=== PATIENT | male | born 1985 | race Caucasian/White ===

== ENCOUNTER 2017-01-14 06:22 | Emergency (ER) | payer BC ==
[2017-01-14 06:37] VITALS: BP 128/91; PULSE 64; RESP 16; TEMP 98.2; O2SAT 98
[2017-01-14] MEDS ORDERED: IBUPROFEN 600 MG TAB PO ONE (06:44)
[2017-01-14] MEDS ORDERED: AMOXICILLIN/CLAVULANATE POT 875/125 MG TAB PO ONE (06:45)
[2017-01-14] MEDS ORDERED: HYDROGEN PEROXIDE 236 ML BOTTLE TP ONE (06:49)
--- NOTE | 2017-01-14 07:06 | EDPHY ---
H & P Time Seen by Provider: 01/14/17 06:31 HPI/ROS: This patient complains of right wisdom tooth pain. He explains that while he has other was in teeth removed at [facility] for some reason the left the culprit wisdom tooth. He explains that over the proceeding 48 hours he has had gradual increasing pain to now 6 or 7/10 pain that is prevented sleep. He took 2 Tylenol-650 mg 2 hours prior to arrival with minimal improvement and came in for evaluation. He also notes some swelling in his mouth surrounding the impacted wisdom tooth. The patient also complains of a sore throats same duration-2 days of mild in intensity. ROS: No high fevers or chills. No other constitutional symptoms HEENT: He reports denies any facial swelling. Immunological: Patient does report anterior cervical lymph node swelling in his neck associated with the symptoms Pulmonary: No complaints GI: No vomiting 5 point ROS is otherwise negative Past Medical/Surgical History: Otherwise healthy Smoking Status: Former smoker Physical Exam: Physical Exam Vital signs are normal. General: No acute distress HEENT: There is no significant facial swelling. No submental swelling. Intraoral exam is notable for impacted right with some tooth with approximately 50% of the with some tooth exposed but the surrounding gingival tissue is swollen with [place] edema. With pressure there is small amount of purulence that appears near the top of the tooth. However it appreciated area of fluctuance in the gingival exam. Oropharynx is notable for a small ulcerative lesion to the left posterior pharynx 5-7 mm in size-superficial with mild erythema. No tonsillar exudates. No dysphonia, drooling or stridor. Neck: Supple with no meningismus. He has mild anterior cervical lymphadenopathy bilaterally. Eyes: Pupils equal and react to light. Extraocular motions are intact. Lungs: No respiratory distress. Cardiac: Brisk capillary refill is intact throughout. Skin: No rash or pallor. Neuro: GCS 15. Cranial nerves 2-12 intact Differential diagnosis: Impacted wisdom tooth, dental abscess, viral pharyngitis, doubt strep pharyngitis Constitutional: Initial Vital Signs Temperature (C) 36.8 C 01/14/17 06:33 Heart Rate 64 01/14/17 06:33 Respiratory Rate 16 01/14/17 06:33 Blood Pressure 128/91 H 01/14/17 06:33 O2 Sat (%) 98 01/14/17 06:33 O2 Delivery Mode Room Air Allergies/Adverse Reactions: No Known Allergies Allergy (Unverified 01/14/17 06:32) Home Medications: Medication Instructions Recorded Amoxicillin/Clavulanate Pot 875 mg PO BID #20 tab 01/14/17 [Augmentin 875 MG TAB (*)] Dextroamphetamine/Amphetamine 01/14/17 [Adderall 10 mg Tablet] FLUoxetine [Prozac 20 MG (*)] 01/14/17 Zolpidem Tartrate [Ambien 10 mg] 01/14/17 traMADol [Ultram 50 mg (*)] 50 - 100 mg PO Q4 PRN #15 tab 01/14/17 MDM/Departure - MDM Procedures: Dental block: After verbal consent cleaned the gingiva with peroxide on a Q- tip and then injected 50 50 mix of 2% plain lidocaine and 0.5% Marcaine to the gingiva adjacent to the affected wisdom tooth-2.5 mL with good effect. Patient had relief of his pain and tolerated the procedure well. There were no complications. Medications Given: Discontinued Medications Amoxicillin/Clavulanate Potassium (Augmentin 875mg) 875 mg PO EDNOW ONE PRN Reason: Protocol Stop: 01/14/17 06:46 Last Admin: 01/14/17 06:47 Dose: 875 mg Ibuprofen (Motrin) 600 mg PO EDNOW ONE Stop: 01/14/17 06:45 Last Admin: 01/14/17 06:46 Dose: 600 mg ED Course/Re-evaluation: Course ibuprofen and Augmentin p. o.. I counseled patient regarding his condition and the plan to follow up with oral surgeon sometime within the next 5 -10 days. Discussion: Patient with of packed it with some tooth with likely apical abscess. No area of clear fluctuance to drain on exam. No evidence of Kory' s angina. He has no evidence of sepsis or other complicating factors at this time. - Depart Disposition: Home, Routine, Self-Care Clinical Impression: Impacted tooth, Dental abscess Condition: Good Instructions: Dental Abscess (ED) Additional Instructions: Dx: 1. Impacted wisdom tooth 2. Dental abscess You received a dental block with Marcaine and lidocaine that should last for 2- 6 hours Plan: Ibuprofen or Aleve [id number] mg of ibuprofen for 6 hours or 2 Alleves 2 times a day Tylenol in addition 650-1000 mg per 4 6 hours while awake Tramadol in addition for pain that prevents sleep. No driving, alcohol or come tramadol Call an oral surgeon to arrange for removal of your wisdom tooth sometime within the next 5-10 days of possible Return for any significant worsening despite the treatment plan. Prescriptions: Amoxicillin/Clavulanate Pot [Augmentin 875 MG TAB (*)] 875 mg PO BID #20 tab traMADol [Ultram 50 mg (*)] 50 - 100 mg PO Q4 PRN #15 tab PRN Reason: breakthrough pain
== END 2017-01-14 07:15 | disposition home or self-care (01) ==
LOC: CED 06:22
PROC: 3E0X3BZ Introduction of Anesthetic Agent into Cranial Nerves, Percutaneous Approach (ICD-10-PCS; principal; 2017-01-14)
DX: K04.7 Periapical abscess without sinus (principal); K01.1 Impacted teeth; Z87.891 Personal history of nicotine dependence